=== PATIENT | female | born 1980 | race Caucasian/White ===

== ENCOUNTER 2022-04-10 17:38 | Inpatient (IN) ==
[2022-04-10] MEDS ORDERED: Ketorolac 30 MG/ML VIAL IM ONE (20:22)
[2022-04-10] MEDS ORDERED: Ketorolac 30 MG/ML VIAL IVP ONE (21:15)
[2022-04-11 06:13] LABS: Influenza A PCR Negative (Negative); Influenza B PCR Negative (Negative); Resp. Syncytial Virus PCR Negative (Negative)
[2022-04-11 06:25] LABS: SARS-CoV-2 by PCR (In House) Negative (Negative)
[2022-04-11] MEDS ORDERED: *HR* LORazepam 1 MG TABLET PO PRN (08:07)
[2022-04-11] MEDS ORDERED: haloperidoL 5 MG TABLET PO PRN (08:07)
[2022-04-11] MEDS ORDERED: *HR* LORazepam 2 MG/ML VIAL IM PRN (08:07)
[2022-04-11] MEDS ORDERED: Haloperidol Lactate 5 MG/ML VIAL IM PRN (08:07)
[2022-04-11 09:02] LABS: Basophils # 0.1 K/mcL (0.0-0.2); Eosinophils # 0.5 K/mcL (0.0-0.6); Eosinophils % 9.7 %; Hematocrit 42.2 % (35.3-44.9); Hemoglobin 13.9 g/dL (11.5-15.4); Immature Granulocytes % 0.2 % (0-4); Lymphocytes # 1.8 K/mcL (0.6-4.6); Lymphocytes % 35.7 %; Mean Corpuscular HGB Conc 32.9 g/dL (31.6-35.5); Mean Corpuscular Volume 88.1 fL (83.0-100.0); Monocytes # 0.4 K/mcL (0.0-1.3); Monocytes % 7.2 %; Neutrophils # 2.4 K/mcL (1.6-8.9); Platelet Count 206 K/mcL (140-400); Red Blood Count 4.79 M/mcL (3.82-4.97); Segmented Neutrophils % 46.2 %; White Blood Count 5.1 K/mcL (4.3-11.1)
[2022-04-11 09:08] LABS: INR 1.2; Prothrombin Time 13.1 Seconds (9.4-12.1)
[2022-04-11] MEDS: Apixaban 5 MG TABLET PO SCH ×2 (13:16→21:19)
[2022-04-11] MEDS: Gabapentin 300 MG CAPSULE PO SCH ×3 (15:01→21:19)
[2022-04-11] MEDS ORDERED: Ibuprofen 400 MG TABLET PO PRN (22:01)
[2022-04-11] MEDS ORDERED: *HR* HYDROcodone/Acet 5/325 mg TABLET PO PRN (22:03)
[2022-04-12] MEDS: Gabapentin 300 MG CAPSULE PO SCH (09:09)
[2022-04-12] MEDS: Apixaban 5 MG TABLET PO SCH (09:09)
[2022-04-12 09:26] VITALS: BP 119/86; PULSE 95; TEMP 98.3; O2SAT 98
== END 2022-04-12 13:37 | disposition home or self-care (01) | DRG 885 ==
LOC: EMEROOARM 17:38 → 1ANU 04-11 07:32
PROVIDERS: ADMIT Student in an Organized Health Care Education/Training Program; ATTEND Student in an Organized Health Care Education/Training Program